=== PATIENT | female | born 1960 | race Caucasian/White ===

== ENCOUNTER 2016-08-02 21:11 | Emergency (ER) | payer BC ==
[~2016-08-02] VITALS: Ht 162.6 cm; Wt 45.4 kg
[2016-08-02] MEDS ORDERED: ACETAMINOPHEN ES 500 MG TABLET PO ONE (22:00)
[2016-08-02] MEDS ORDERED: LET TOPICAL SOLUTION 8 ML UDC TOP ONE (22:00)
[2016-08-02] MEDS ORDERED: TDAP DIPH,PERTUSS,TET VAC/PF 0.5 ML DISP.SYRIN IM ONE ×2 (22:00→22:22)
[2016-08-02] MEDS ORDERED: ACETAMINOPHEN ES 500 MG TABLET ONE (22:22)
[2016-08-02] MEDS ORDERED: LET TOPICAL SOLUTION 8 ML UDC ONE ×2 (22:22→22:25)
--- NOTE | 2016-08-02 22:25 | NUR ---
Pt to room for puncture wound to Left hand. Pt seen by MD. Pt medicated for discomfort. LET applied to wound, will monitor effects of medication.
[2016-08-02] MEDS ORDERED: IBUPROFEN 200 MG TABLET PO ONE (22:45)
--- NOTE | 2016-08-02 23:15 | NUR ---
Pt resting in position of comfort for self. Awaiting re-evaluation and disposition
[2016-08-02] MEDS ORDERED: IBUPROFEN 200 MG TABLET ONE (23:26)
[2016-08-03] MEDS ORDERED: IBUPROFEN 400 MG TABLET PO ONE
--- NOTE | 2016-08-03 00:20 | NUR ---
Puncture wound repair done by Dr. Vargas using dermabond. Pt stable for discharge per MD. Pt given ACI. Pt verbalized understanding of dc instructions. 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
[2016-08-03] MEDS ORDERED: IBUPROFEN 400 MG TABLET ONE (00:33)
[2016-08-03 00:48] VITALS: BP 128/58
== END 2016-08-03 00:20 | disposition home or self-care (01) ==
LOC: ER 21:12
DX: S61.412A Laceration without foreign body of left hand, initial encounter (principal); W26.0XXA Contact with knife, initial encounter; Y93.89 Activity, other specified; Y99.8 Other external cause status; Y92.009 Unspecified place in unspecified non-institutional (private) residence as the place of occurrence of the external cause
CPT/HCPCS: 12001; 90471; 90715; 99284; A4217; A4663

== ENCOUNTER 2016-08-04 17:08 | Emergency (ER) | payer BC ==
[~2016-08-04] VITALS: Ht 162.6 cm; Wt 46.3 kg
--- NOTE | 2016-08-04 19:29 | NUR ---
Patient discharged to home in stable conditon. Written and verbal after care instructions given. Patient verbalizes understanding of instructions.
== END 2016-08-04 19:29 | disposition home or self-care (01) ==
LOC: ER 17:13
DX: S61.432A Puncture wound without foreign body of left hand, initial encounter (principal); X58.XXXA Exposure to other specified factors, initial encounter; Y93.89 Activity, other specified; Y99.8 Other external cause status; Y92.89 Other specified places as the place of occurrence of the external cause
CPT/HCPCS: A4663